=== PATIENT | female | born 1985 | race Caucasian/White ===

== ENCOUNTER 2018-11-17 07:53 | Inpatient (IN) | payer MEDICAID ==
[2018-11-17] MEDS ORDERED: Ondansetron 4 MG/2 ML SDV IVPUSH ONE (08:20)
[2018-11-17] MEDS ORDERED: Sodium Chloride 0.9% 1,000 ML IV SCH (08:30)
[2018-11-17] MEDS ORDERED: Lactated Ringers 1,000 ML IV ONE (08:36)
[2018-11-17] MEDS ORDERED: ePHEDrine 50 MG/ML SDV IVPUSH PRN (08:36)
[2018-11-17] MEDS ORDERED: Sodium Chloride 0.9% 10 ML Syringe FLUSH PRN (08:36)
--- NOTE | 2018-11-17 08:44 | PCM.LDHP ---
<Kimmy Cheung - Last Filed: 11/17/18 08:39> L&D History of Present Illness - General Date of Service: 11/17/18 Admit Problem/Dx: Admission Diagnosis/Problem Admission Diagnosis/Problem Source of Information: Patient History Limitations: Reports: No Limitations - History of Present Illness Introduction:: 11/17/18 33 yo at 38 4/7 weeks presents with contractions at home since last evening , they picked up in intensity around 0200 today. She has also been throwing up intermittently since last evening. She presents with a fever today. Membranes intact. Timing/Duration: Reports: minutes: (2-4) Location, : Reports: Abdomen Severity: Moderate Improves with: Reports: Movement Worsens with: Reports: None Associated Symptoms: Denies: vaginal bleeding, vaginal fluid - Related Data Allergies/Adverse Reactions: Allergies Allergy/AdvReac Type Severity Reaction Status Date / Time No Known Allergies Allergy Verified 08/07/16 18:54 Home Medications: Home Meds Cholecalciferol (Vitamin D3) [Vitamin D3] 1,000 unit PO DAILY 08/07/16 [History] Cyanocobalamin (Vitamin B-12) [Vitamin B-12] 1,000 mcg PO DAILY 08/07/16 [ History] [place]-3 Fatty Acids [[place]-3] 100 mg PO DAILY 08/07/16 [History] Past Medical History [employer] History: Reports: : 2 Para: 1 LMP (Approximate): Musculoskeletal History: Reports: Fracture Other Musculoskeletal History: L wrist Psychiatric History: Reports: Anxiety - Infectious Disease History Infectious Disease History: Reports: Chicken Pox Social & Family History - Caffeine Use Caffeine Use: Reports: Coffee, Tea H&P Review of Systems - Review of Systems: Review Of Systems: See Below General: Reports: Fever, Other (nausea) HEENT: Reports: No Symptoms Pulmonary: Reports: No Symptoms Cardiovascular: Reports: No Symptoms Gastrointestinal: Reports: Vomiting Genitourinary: Reports: No Symptoms Musculoskeletal: Reports: No Symptoms Skin: Reports: No Symptoms Psychiatric: Reports: No Symptoms Neurological: Reports: No Symptoms Hematologic/Lymphatic: Reports: No Symptoms Immunologic: Reports: No Symptoms L&D Exam - Exam Exam: See Below - Vital Signs Vital Signs: Last Vital Signs Temp 38.1 C 11/17/18 08:25 Pulse 108 H 11/17/18 08:00 Resp 16 11/17/18 08:00 BP 114/79 11/17/18 08:00 Pulse Ox 97 11/17/18 08:00 - OB Specific Contraction Frequency (min): 2-4 Contraction Intensity: Moderate Movement: Active Heart Tones: Present Heart Rate (FHR) Variability: Moderate (6-25 bmp) Presentation: Vertex Estimated Weight: 8 lbs - Exam General: Alert, Oriented HEENT: PERRLA, Conjunctiva Clear, EOMI, Hearing Intact, Mucosa Moist & [place], Nares Patent, Normal Nasal Septum, Pupils Equal Neck: Supple, Trachea Midline Lungs: Clear to Auscultation, Normal Respiratory Effort Cardiovascular: Regular Rate, Regular Rhythm GI/Abdominal Exam: Normal Bowel Sounds, Soft, Non-Tender, No Distention Rectal Exam: Normal Exam, Normal Rectal Tone Genitourinary: Normal external exam, Cervical dilitation. No: Vaginal bleeding Back Exam: Normal Inspection, Full Range of Motion Extremities: Normal Inspection, Normal Range of Motion, Non-Tender, No Pedal Edema, Normal Capillary Refill Skin: Warm, Dry, Intact Neurological: Reflexes Equal Bilateral Psychiatric: Alert, Normal Affect, Normal Mood - Problem List (1) Fever SNOMED Code(s): 373760941 ICD Code: R50.9 - FEVER, UNSPECIFIED Status: Acute Current Visit: Yes (2) Labor established SNOMED Code(s): 39057979 ICD Code: [id number] - Status: Acute Current Visit: Yes (3) SNOMED Code(s): 40014944 ICD Code: Z34.90 - ENCNTR FOR SUPRVSN OF NORMAL , UNSP, UNSP TRIMESTER Status: Acute Current Visit: Yes Qualifiers: Weeks of gestation: 38 weeks Qualified Code(s): Z3A.38 - 38 weeks gestation of Problem List Initiated/Reviewed/Updated: Yes Orders Last 24hrs: Active Orders 24 hr Category Date Time Status OB Check [OM.PC] Click To Edit Care 11/17/18 08:00 Ordered DRUG SCREEN, URINE [URCHEM] Urgent Lab 11/17/18 08:28 Ordered INFLUENZA A+B AG SCREEN [RM] Urgent Lab 11/17/18 08:26 Ordered UA W/MICROSCOPIC [URIN] Routine Lab 11/17/18 08:14 Ordered Sodium Chloride 0.9% [Normal Saline] 1,000 ml Med 11/17/18 08:30 Active IV ASDIRECTED Medication Orders Sodium Chloride (Normal Saline) 1,000 mls @ 999 mls/hr IV ASDIRECTED BEST Assessment/Plan Comment:: 11/17/18 Assessment: Fever, vomiting Labor established GBS negative, Rubella immune, B pos blood type, HIV neg, Hep B/C neg, RPR neg Plan: Fluid bolus, IV Zofran, Tylenol Labs ordered Intermittent monitoring Desires nitrous oxide vs epidural Anticipate of a male infant <Vanesa Quintero A - Last Filed: 11/17/18 12:17> L&D History of Present Illness - General Admit Problem/Dx: Patient Status Order with Admit Dx/Problem 11/17/18 08:38 Patient Status [ADT] Routine Admission Diagnosis/Problem Admission Diagnosis/Problem Labor established L&D Exam - Vital Signs Vital Signs: Last Vital Signs Temp 100.1 F 11/17/18 09:07 Pulse 108 H 11/17/18 08:00 Resp 16 11/17/18 08:00 BP 114/79 11/17/18 08:00 Pulse Ox 97 11/17/18 08:00 - Patient Data Lab Results Last 24 hrs: Laboratory Results - last 24 hr 11/17/18 11/17/18 11/17/18 Range/Units 08:14 08:28 08:50 WBC 9.5 (4.5-11.0) K/uL RBC 3.91 (3.30-5.50) M/uL Hgb 11.8 L (12.0-15.0) g/dL Hct 36.6 (36.0-48.0) % MCV 94 (80-98) fL MCH 30 (27-31) pg MCHC 32 (32-36) % Plt Count 236 (150-400) K/uL Urine Color Yellow Urine Appearance Slightly cloudy Urine pH 6.0 (4.5-8.0) Ur Specific [place] 1.015 (1.008-1.030) Urine Protein Trace (NEGATIVE) mg/dL Urine Glucose (UA) Normal (NEGATIVE) mg/dL Urine Ketones 50 H (NEGATIVE) mg/dL Urine Occult Blood Trace (NEGATIVE) Urine Nitrite Negative (NEGATIVE) Urine Bilirubin Negative (NEGATIVE) Urine Urobilinogen Normal (NORMAL) mg/dL Ur Leukocyte Esterase Negative (NEGATIVE) Urine RBC 0-5 (0-5) Urine WBC 0-5 (0-5) Ur Epithelial Cells Moderate Amorphous Sediment Not seen Urine Bacteria Few Urine Mucus Many Urine Opiates Screen Negative (NEGATIVE) Ur Oxycodone Screen Negative (NEGATIVE) Urine Methadone Screen Negative (NEGATIVE) Ur Propoxyphene Screen Negative (NEGATIVE) Ur Barbiturates Screen Negative (NEGATIVE) Ur Tricyclics Screen Negative (NEGATIVE) Ur Phencyclidine Scrn Negative (NEGATIVE) Ur Amphetamine Screen Negative (NEGATIVE) U Methamphetamines Scrn Negative (NEGATIVE) Urine MDMA Screen Negative (NEGATIVE) U Benzodiazepines Scrn Negative (NEGATIVE) U Cocaine Metab Screen Negative (NEGATIVE) U Marijuana (THC) Screen Negative (NEGATIVE) Result Diagrams: 11/17/18 08:50 Giorgio Results Last 24 hrs: Microbiology 11/17/18 08:49 Influenza Type A Antigen Screen - Final Nasopharyngeal Swab NEGATIVE INFLUENZA A VIRUS AG Influenza Type B Antigen Screen - Final NEGATIVE INFLUENZA B VIRUS AG Orders Last 24hrs: Active Orders 24 hr Category Date Time Status Patient Status [ADT] Routine ADT 11/17/18 08:38 Active Antiembolic Devices [RC] .Routine Care 11/17/18 08:41 Active Communication Order [RC] ASDIRECTED Care 11/17/18 08:38 Active Communication Order [RC] ASDIRECTED Care 11/17/18 08:38 Active Communication Order [RC] Per Unit Routine Care 11/17/18 08:38 Active Communication Order [RC] Per Unit Routine Care 11/17/18 08:38 Active Communication Order [RC] Per Unit Routine Care 11/17/18 08:38 Active Heart Tones [RC] PER UNIT ROUTINE Care 11/17/18 08:38 Active Non Stress Test [RC] Click to Edit Care 11/17/18 08:38 Active Insert Urinary Catheter [OM.PC] ASDIRECTED Care 11/17/18 08:45 Ordered Local Anesthetic Infusion Pump [RC] ASDIRECTED Care 11/17/18 08:38 Active May Shower [RC] ASDIRECTED Care 11/17/18 08:36 Active Nitrous Oxide Delivery [RC] ASDIRECTED Care 11/17/18 08:38 Active Notify Provider Vital Signs [RC] PRN Care 11/17/18 08:36 Active Notify Provider [RC] PRN Care 11/17/18 08:38 Active OB Check [OM.PC] Click To Edit Care 11/17/18 08:00 Ordered Oxygen Therapy [RC] ASDIRECTED Care 11/17/18 08:38 Active PCEA Epidural [RC] ASDIRECTED Care 11/17/18 08:38 Active PCEA Epidural [RC] ASDIRECTED Care 11/17/18 08:39 Active Pulse Oximetry [RC] ASDIRECTED Care 11/17/18 08:38 Active Up ad [place] [RC] ASDIRECTED Care 11/17/18 08:36 Active Urinary Catheter Assessment [RC] ASDIRECTED Care 11/17/18 08:39 Active VTE/DVT Education [RC] Click to Edit Care 11/17/18 08:41 Active Verify Patient Consent Obtain [RC] ASDIRECTED Care 11/17/18 08:38 Active Vital Signs [RC] PER UNIT ROUTINE Care 11/17/18 08:38 Active Vital Signs [RC] PER UNIT ROUTINE Care 11/17/18 08:38 Active Clear Liquid Diet [DIET] Diet 11/17/18 Lunch Active Acetaminophen [Tylenol] Med 11/17/18 08:36 Active 650 mg PO Q4H PRN Lactated Ringers [Ringers, Lactated] 1,000 ml Med 11/17/18 10:00 Active IV ASDIRECTED Sodium Chloride 0.9% [Normal Saline] 1,000 ml Med 11/17/18 08:30 Active IV ASDIRECTED Sodium Chloride 0.9% [Saline Flush] Med 11/17/18 08:36 Active 10 ml FLUSH ASDIRECTED PRN ePHEDrine [ePHEDrine sulfate] Med 11/17/18 08:36 Active 5 mg IVPUSH ASDIRECTED PRN DVT/VTE Prophylaxis Reflex [OM.PC] Routine Oth 11/17/18 08:36 Ordered Epidural Catheter Management [OM.PC] Urgent Oth 11/17/18 08:38 Ordered Saline Lock Insert [OM.PC] Routine Oth 11/17/18 08:38 Ordered Resuscitation Status Routine Resus Stat 11/17/18 08:36 Ordered Medication Orders Acetaminophen (Tylenol) 650 mg PO Q4H PRN PRN Reason: Pain (Mild 1-3) and fever Last Admin: 11/17/18 09:07 Dose: 650 mg Ephedrine Sulfate (Ephedrine Sulfate) 5 mg IVPUSH ASDIRECTED PRN PRN Reason: SBP < 100 Sodium Chloride (Normal Saline) 1,000 mls @ 999 mls/hr IV ASDIRECTED BEST Last Admin: 11/17/18 08:30 Dose: 999 mls/hr Lactated Ringer's (Ringers, Lactated) 1,000 mls @ 125 mls/hr IV ASDIRECTED BEST Last Admin: 11/17/18 09:55 Dose: 125 mls/hr Sodium Chloride (Saline Flush) 10 ml FLUSH ASDIRECTED PRN PRN Reason: Keep Vein Open Assessment/Plan Comment:: I personally performed or re-performed the physical examination and medical decision making. I have verified all student documentation or findings, including history, physical exam and/or medical decision making. Vanesa WIGGINS, CNM, CFNP
[2018-11-17] MEDS: Acetaminophen 325 MG Tab PO PRN ×2 (09:07→17:08)
[2018-11-17] MEDS ORDERED: Lactated Ringers 1,000 ML IV SCH (10:00)
--- NOTE | 2018-11-17 12:15 | PCM.PNLD ---
<Kimmy Cheung - Last Filed: 11/17/18 12:12> Labor Progress Note - VS & Meds Vital Signs: Last Vital Signs Temp 37.8 C 11/17/18 09:07 Pulse 108 H 11/17/18 08:00 Resp 16 11/17/18 08:00 BP 114/79 11/17/18 08:00 Pulse Ox 97 11/17/18 08:00 Active Medications: Current Medications Acetaminophen (Tylenol) 650 mg PO Q4H PRN PRN Reason: Pain (Mild 1-3) and fever Last Admin: 11/17/18 09:07 Dose: 650 mg Ephedrine Sulfate (Ephedrine Sulfate) 5 mg IVPUSH ASDIRECTED PRN PRN Reason: SBP < 100 Sodium Chloride (Normal Saline) 1,000 mls @ 999 mls/hr IV ASDIRECTED [facility] Last Admin: 11/17/18 08:30 Dose: 999 mls/hr Lactated Ringer's (Ringers, Lactated) 1,000 mls @ 125 mls/hr IV ASDIRECTED [facility] Last Admin: 11/17/18 09:55 Dose: 125 mls/hr Sodium Chloride (Saline Flush) 10 ml FLUSH ASDIRECTED PRN PRN Reason: Keep Vein Open Discontinued Medications Lactated Ringer's (Ringers, Lactated) 1,000 mls @ 999 mls/hr IV .BOLUS ONE Stop: 11/17/18 09:36 Oxytocin/Sodium Chloride (Pitocin In Ns 20 Units/1,000 Ml) 20 unit in 1,000 mls @ 999 mls/hr IV ONETIME ONE; Protocol Stop: 11/17/18 09:44 Ondansetron HCl (Zofran) 4 mg IVPUSH ONETIME ONE Stop: 11/17/18 08:21 Last Admin: 11/17/18 08:49 Dose: 4 mg - Uterine Contractions Uterine Monitoring Mode: None in Use Contraction Frequency (min): 3-4.5 Contraction Duration (sec): 70-100 Contraction Intensity: Moderate Uterine Resting Tone: Soft - Monitoring Monitor Mode: External Ultrasound Heart Rate (FHR) Baseline: 140 Heart Rate (FHR) Variability: Moderate (6-25 bmp) Accelerations: Present, 15x15 Decelerations: None Strip Review: Category I - Vaginal Exam Dilation (cm): 5.5 Effacement (Percent): 100 Station: -1 Cervical Position: Midposition Sterile Vaginal Exam Performed By: Kimmy Cheung - Labor Progress (Free Text) Labor Progress: 11/17/18 Labor progressing nicely. She had SROM during vaginal exam with clear fluid, head well applied. Cervix 5.5/100/-1. She is going to use nitrous oxide for pain control at this time. Feels much better, afebrile, no nausea or vomiting. <Vanesa Quintero - Last Filed: 11/17/18 12:18> Labor Progress Note - VS & Meds Vital Signs: Last Vital Signs Temp 100.1 F 11/17/18 09:07 Pulse 108 H 11/17/18 08:00 Resp 16 11/17/18 08:00 BP 114/79 11/17/18 08:00 Pulse Ox 97 11/17/18 08:00 Active Medications: Current Medications Acetaminophen (Tylenol) 650 mg PO Q4H PRN PRN Reason: Pain (Mild 1-3) and fever Last Admin: 11/17/18 09:07 Dose: 650 mg Ephedrine Sulfate (Ephedrine Sulfate) 5 mg IVPUSH ASDIRECTED PRN PRN Reason: SBP < 100 Sodium Chloride (Normal Saline) 1,000 mls @ 999 mls/hr IV ASDIRECTED [facility] Last Admin: 11/17/18 08:30 Dose: 999 mls/hr Lactated Ringer's (Ringers, Lactated) 1,000 mls @ 125 mls/hr IV ASDIRECTED [facility] Last Admin: 11/17/18 09:55 Dose: 125 mls/hr Sodium Chloride (Saline Flush) 10 ml FLUSH ASDIRECTED PRN PRN Reason: Keep Vein Open Discontinued Medications Lactated Ringer's (Ringers, Lactated) 1,000 mls @ 999 mls/hr IV .BOLUS ONE Stop: 11/17/18 09:36 Oxytocin/Sodium Chloride (Pitocin In Ns 20 Units/1,000 Ml) 20 unit in 1,000 mls @ 999 mls/hr IV ONETIME ONE; Protocol Stop: 11/17/18 09:44 Ondansetron HCl (Zofran) 4 mg IVPUSH ONETIME ONE Stop: 11/17/18 08:21 Last Admin: 11/17/18 08:49 Dose: 4 mg - Labor Progress (Free Text) Labor Progress: I personally performed or re-performed the physical examination and medical decision making. I have verified all student documentation or findings, including history, physical exam and/or medical decision making. Vanesa WIGGINS, CNM, CFNP
[2018-11-17] MEDS ORDERED: Ropivacaine 100 ML ONE (14:07)
--- NOTE | 2018-11-17 17:00 | PCM.PNLD ---
<Kimmy Cheung - Last Filed: 11/17/18 16:55> Labor Progress Note - VS & Meds Vital Signs: Last Vital Signs Temp 37.1 C 11/17/18 15:15 Pulse 86 11/17/18 15:30 Resp 18 11/17/18 15:30 BP 108/53 L 11/17/18 15:30 Pulse Ox 99 11/17/18 15:30 Active Medications: Current Medications Acetaminophen (Tylenol) 650 mg PO Q4H PRN PRN Reason: Pain (Mild 1-3) and fever Last Admin: 11/17/18 09:07 Dose: 650 mg Ephedrine Sulfate (Ephedrine Sulfate) 5 mg IVPUSH ASDIRECTED PRN PRN Reason: SBP < 100 Sodium Chloride (Normal Saline) 1,000 mls @ 999 mls/hr IV ASDIRECTED BEST Last Admin: 11/17/18 08:30 Dose: 999 mls/hr Lactated Ringer's (Ringers, Lactated) 1,000 mls @ 125 mls/hr IV ASDIRECTED BEST Last Admin: 11/17/18 09:55 Dose: 125 mls/hr Oxytocin/Sodium Chloride (Pitocin In Ns 20 Units/1,000 Ml) 20 units in 1,000 mls @ 6 mls/hr IV TITRATE BEST; Protocol Last Admin: 11/17/18 16:16 Dose: 2 munits/min, 6 mls/hr Sodium Chloride (Saline Flush) 10 ml FLUSH ASDIRECTED PRN PRN Reason: Keep Vein Open Discontinued Medications Lactated Ringer's (Ringers, Lactated) 1,000 mls @ 999 mls/hr IV .BOLUS ONE Stop: 11/17/18 09:36 Last Admin: 11/17/18 11:40 Dose: 999 mls/hr Oxytocin/Sodium Chloride (Pitocin In Ns 20 Units/1,000 Ml) 20 unit in 1,000 mls @ 999 mls/hr IV ONETIME ONE; Protocol Stop: 11/17/18 09:44 Ropivacaine (Naropin 0.2%) Confirm Administered Dose 100 mls @ as directed .ROUTE .STK-MED ONE Stop: 11/17/18 14:08 Ondansetron HCl (Zofran) 4 mg IVPUSH ONETIME ONE Stop: 11/17/18 08:21 Last Admin: 11/17/18 08:49 Dose: 4 mg - Uterine Contractions Uterine Monitoring Mode: External [place] Contraction Frequency (min): 2-5 Contraction Duration (sec): 40-60 Contraction Intensity: Moderate to Strong Uterine Resting Tone: Soft - Monitoring Monitor Mode: External Ultrasound Heart Rate (FHR) Baseline: 140 Heart Rate (FHR) Variability: Moderate (6-25 bmp) Accelerations: Present, 15x15 Decelerations: None Strip Review: Category I - Vaginal Exam Dilation (cm): 9 Effacement (Percent): 100 Station: 0 Cervical Position: Midposition Sterile Vaginal Exam Performed By: Kimmy Cheung Vaginal Exam Comment: joe Oneal - Labor Progress (Free Text) Labor Progress: 11/17/18 SVE 8-9/100/0. AROM completed on second bag of fluid which was clear. Pain is well controlled with epidural. Rotating positions and anticipating . Pitocin was started at 2 mu due to contractions spacing out to every 5 min. <Vanesa Quintero - Last Filed: 11/17/18 18:14> Labor Progress Note - VS & Meds Vital Signs: Last Vital Signs Temp 100.7 F H 11/17/18 17:08 Pulse 86 11/17/18 15:30 Resp 18 11/17/18 15:30 BP 108/53 L 11/17/18 15:30 Pulse Ox 99 11/17/18 15:30 Active Medications: Current Medications Acetaminophen (Tylenol) 650 mg PO Q4H PRN PRN Reason: Pain (Mild 1-3) and fever Last Admin: 11/17/18 17:08 Dose: 650 mg Ephedrine Sulfate (Ephedrine Sulfate) 5 mg IVPUSH ASDIRECTED PRN PRN Reason: SBP < 100 Sodium Chloride (Normal Saline) 1,000 mls @ 999 mls/hr IV ASDIRECTED BEST Last Admin: 11/17/18 08:30 Dose: 999 mls/hr Lactated Ringer's (Ringers, Lactated) 1,000 mls @ 125 mls/hr IV ASDIRECTED BEST Last Admin: 11/17/18 09:55 Dose: 125 mls/hr Oxytocin/Sodium Chloride (Pitocin In Ns 20 Units/1,000 Ml) 20 units in 1,000 mls @ 6 mls/hr IV TITRATE BEST; Protocol Last Admin: 11/17/18 16:16 Dose: 2 munits/min, 6 mls/hr Sodium Chloride (Saline Flush) 10 ml FLUSH ASDIRECTED PRN PRN Reason: Keep Vein Open Discontinued Medications Lactated Ringer's (Ringers, Lactated) 1,000 mls @ 999 mls/hr IV .BOLUS ONE Stop: 11/17/18 09:36 Last Admin: 11/17/18 11:40 Dose: 999 mls/hr Oxytocin/Sodium Chloride (Pitocin In Ns 20 Units/1,000 Ml) 20 unit in 1,000 mls @ 999 mls/hr IV ONETIME ONE; Protocol Stop: 11/17/18 09:44 Ropivacaine (Naropin 0.2%) Confirm Administered Dose 100 mls @ as directed .ROUTE .STK-MED ONE Stop: 11/17/18 14:08 Ondansetron HCl (Zofran) 4 mg IVPUSH ONETIME ONE Stop: 11/17/18 08:21 Last Admin: 11/17/18 08:49 Dose: 4 mg - Labor Progress (Free Text) Labor Progress: I personally performed or re-performed the physical examination and medical decision making. I have verified all student documentation or findings, including history, physical exam and/or medical decision making. Vansea Quintero APRN, MARIBELL, CFNP
[2018-11-17] MEDS ORDERED: Benzocaine 20% Top Spray 56 GM Bottle TOP PRN (18:11)
[2018-11-17] MEDS ORDERED: Ibuprofen 200 MG Tab, 24 Tab Bulk Bottle PO PRN (18:11)
[2018-11-17] MEDS ORDERED: Acetaminophen 325 MG Tab, 50 Tab Bulk Bottle PO PRN (18:11)
[2018-11-17] MEDS ORDERED: Witch Hazel Medicated Pads 100/Jar TOP PRN (18:11)
[2018-11-17] MEDS ORDERED: Lanolin 100% Cream 40 GM Tube TOP PRN (18:11)
--- NOTE | 2018-11-17 18:21 | PCM.DEL ---
<Kimmy Cheung - Last Filed: 11/17/18 18:15> L & D Note - General Info Date of Service: 11/17/18 () Mother's Due Date: 11/27/18 - Delivery Note Labor: Spontaneous Delivery Outcome: Livebirth Delivery Method: Spontaneous Vaginal Delivery-Single Infant Delivery Mode: Spontaneous Presentation: Left Occiput Anterior (LESLEY) Nuchal Cord: None Anesthesia Type: Epidural, Nitrous Oxide Amniotic Fluid Description: Clear Episiotomy Type: None Laceration: 1st Degree Suture type: Vicryl Suture size: 3-0 Placenta: Intact, Spontaneous Cord: 3 Vessels Estimated Blood Loss: 200 Resuscitation Needed: No [place]: Stimulated, Warmed, [place] Used Provider: Vanesa Quintero Score 1 min: 8 Score 5 min: 9 Second Stage Interventions: Reports: Second Nurse Assessed Progress of Descent, Second Nurse Reviewed Contraction Pattern, Second Nurse Reviewed Heart Tones, Pushing Effectively, Pushing, Pulls Own Legs Back Delivery Comments (Free Text/Narrative):: 11/17/18 33 yo G2 now P2 had a at 1753 today after spontaneous labor that started this morning around 0200. She began active labor with SROM at 1209 with clear fluid. She progressed nicely but was augmented with pitocin for contractions that spaced to every 5 minutes. AROM of a second bag was done with clear fluid. Vigorous baby boy was delivered in LESLEY position. Apgars 8, 9. No nuchal cord present. Baby was placed to mothers chest skin to skin. Placenta was delivered spontaneously with a 3 vessel cord and intact. Delayed cord clamping completed. Cord was double clamped and cut. Pitocin IV after placenta given. EBL 200 mL She had a first degree perineal laceration that was repaired. There were no cervical, rectal, or vaginal lacerations. Stages 1st- [id number] 2nd- [id number] 3rd- [id number] - General Info Date of Service: 11/17/18 () Functional Status: Reports: Pain Controlled - Review of Systems General: Reports: Fever (temp 100.7 while pushing) HEENT: Reports: No Symptoms Pulmonary: Reports: No Symptoms Cardiovascular: Reports: No Symptoms Gastrointestinal: Reports: No Symptoms Genitourinary: Reports: No Symptoms Musculoskeletal: Reports: No Symptoms Skin: Reports: No Symptoms Neurological: Reports: No Symptoms Psychiatric: Reports: No Symptoms - Patient Data Vitals - Most Recent: Last Vital Signs Temp 38.2 C H 11/17/18 17:08 Pulse 86 11/17/18 15:30 Resp 18 11/17/18 15:30 BP 108/53 L 11/17/18 15:30 Pulse Ox 99 11/17/18 15:30 Weight - Most Recent: 216 lb 0.002 oz I&O - Last 24 Hours: Intake & Output 11/17/18 11/17/18 11/17/18 06:59 14:59 22:59 Intake Total 1000 Output Total 100 Balance 900 Lab Results Last 24 Hours: Laboratory Results - last 24 hr 11/17/18 11/17/18 11/17/18 Range/Units 08:14 08:28 08:50 WBC 9.5 (4.5-11.0) K/uL RBC 3.91 (3.30-5.50) M/uL Hgb 11.8 L (12.0-15.0) g/dL Hct 36.6 (36.0-48.0) % MCV 94 (80-98) fL MCH 30 (27-31) pg MCHC 32 (32-36) % Plt Count 236 (150-400) K/uL Urine Color Yellow Urine Appearance Slightly cloudy Urine pH 6.0 (4.5-8.0) Ur Specific [place] 1.015 (1.008-1.030) Urine Protein Trace (NEGATIVE) mg/dL Urine Glucose (UA) Normal (NEGATIVE) mg/dL Urine Ketones 50 H (NEGATIVE) mg/dL Urine Occult Blood Trace (NEGATIVE) Urine Nitrite Negative (NEGATIVE) Urine Bilirubin Negative (NEGATIVE) Urine Urobilinogen Normal (NORMAL) mg/dL Ur Leukocyte Esterase Negative (NEGATIVE) Urine RBC 0-5 (0-5) Urine WBC 0-5 (0-5) Ur Epithelial Cells Moderate Amorphous Sediment Not seen Urine Bacteria Few Urine Mucus Many Urine Opiates Screen Negative (NEGATIVE) Ur Oxycodone Screen Negative (NEGATIVE) Urine Methadone Screen Negative (NEGATIVE) Ur Propoxyphene Screen Negative (NEGATIVE) Ur Barbiturates Screen Negative (NEGATIVE) Ur Tricyclics Screen Negative (NEGATIVE) Ur Phencyclidine Scrn Negative (NEGATIVE) Ur Amphetamine Screen Negative (NEGATIVE) U Methamphetamines Scrn Negative (NEGATIVE) Urine MDMA Screen Negative (NEGATIVE) U Benzodiazepines Scrn Negative (NEGATIVE) U Cocaine Metab Screen Negative (NEGATIVE) U Marijuana (THC) Screen Negative (NEGATIVE) Giorgio Results Last 24 Hours: Microbiology 11/17/18 08:49 Influenza Type A Antigen Screen - Final Nasopharyngeal Swab NEGATIVE INFLUENZA A VIRUS AG Influenza Type B Antigen Screen - Final NEGATIVE INFLUENZA B VIRUS AG Med Orders - Current: Current Medications Acetaminophen (Tylenol) 650 mg PO Q4H PRN PRN Reason: Pain (Mild 1-3) and fever Last Admin: 11/17/18 17:08 Dose: 650 mg Ephedrine Sulfate (Ephedrine Sulfate) 5 mg IVPUSH ASDIRECTED PRN PRN Reason: SBP < 100 Sodium Chloride (Normal Saline) 1,000 mls @ 999 mls/hr IV ASDIRECTED BEST Last Admin: 11/17/18 08:30 Dose: 999 mls/hr Lactated Ringer's (Ringers, Lactated) 1,000 mls @ 125 mls/hr IV ASDIRECTED BEST Last Admin: 11/17/18 09:55 Dose: 125 mls/hr Oxytocin/Sodium Chloride (Pitocin In Ns 20 Units/1,000 Ml) 20 units in 1,000 mls @ 6 mls/hr IV TITRATE BEST; Protocol Last Admin: 11/17/18 16:16 Dose: 2 munits/min, 6 mls/hr Sodium Chloride (Saline Flush) 10 ml FLUSH ASDIRECTED PRN PRN Reason: Keep Vein Open Discontinued Medications Lactated Ringer's (Ringers, Lactated) 1,000 mls @ 999 mls/hr IV .BOLUS ONE Stop: 11/17/18 09:36 Last Admin: 11/17/18 11:40 Dose: 999 mls/hr Oxytocin/Sodium Chloride (Pitocin In Ns 20 Units/1,000 Ml) 20 unit in 1,000 mls @ 999 mls/hr IV ONETIME ONE; Protocol Stop: 11/17/18 09:44 Ropivacaine (Naropin 0.2%) Confirm Administered Dose 100 mls @ as directed .ROUTE .STK-MED ONE Stop: 11/17/18 14:08 Ondansetron HCl (Zofran) 4 mg IVPUSH ONETIME ONE Stop: 11/17/18 08:21 Last Admin: 11/17/18 08:49 Dose: 4 mg - Exam General: Alert, Oriented HEENT: Pupils Equal, Pupils Reactive, Mucous Membr. Moist/[place] Neck: Supple Lungs: Clear to Auscultation, Normal Respiratory Effort Cardiovascular: Regular Rate, Regular Rhythm GI/Abdominal Exam: Normal Bowel Sounds, Soft, Non-Tender (Female) Exam: Normal External Exam, Cervical Dilatation, Vaginal Bleeding. No: Vaginal Tears Back Exam: Normal Inspection, Full Range of Motion Extremities: Normal Inspection, Non-Tender, No Pedal Edema Skin: Warm, Dry Neurological: No New Focal Deficit Psy/Mental Status: Alert, Normal Affect, Normal Mood - Problem List & Annotations (1) Fever SNOMED Code(s): 971543095 Code(s): R50.9 - FEVER, UNSPECIFIED Status: Acute Current Visit: Yes (2) Labor established SNOMED Code(s): 21512113 Code(s): ROR4308 - Status: Acute Current Visit: Yes (3) SNOMED Code(s): 97216001 Code(s): Z34.90 - ENCNTR FOR SUPRVSN OF NORMAL , UNSP, UNSP TRIMESTER Status: Acute Current Visit: Yes Qualifiers: Weeks of gestation: 38 weeks Qualified Code(s): Z3A.38 - 38 weeks gestation of (4) Vaginal delivery SNOMED Code(s): 143062231 Code(s): O80 - ENCOUNTER FOR FULL-TERM UNCOMPLICATED DELIVERY Status: Acute Current Visit: Yes (5) Mother currently breast-feeding SNOMED Code(s): 790773368 Code(s): QHH9127 - Status: Acute Current Visit: Yes - Problem List Review Problem List Initiated/Reviewed/Updated: Yes - My Orders Last 24 Hours: My Active Orders 11/17/18 18:10 Patient Status [ADT] Routine Vital Signs [RC] PFP 11/17/18 18:11 Vital Signs [RC] PFP Consult to [place] [CONS] Routine Acetaminophen [Tylenol Bulk Bottle] 325 mg PO Q4H PRN Benzocaine [[id number] 20% [place]] See Dose Instructions TOP Q4H PRN Ibuprofen [Motrin Bulk Bottle] 600 mg PO Q6H PRN Lanolin [Lansinoh HPA] 1 gm TOP ASDIRECTED PRN Witch My [Tucks] 1 pad TOP ASDIRECTED PRN Assess Lochia [WOMSER] Per Unit Routine Assess Uterine Involution [WOMSER] Per Unit Routine 11/17/18 18:12 Ice Therapy [OM.PC] Per Unit Routine Perineal Care [OM.PC] Per Unit Routine Peripheral IV Discontinue [OM.PC] Routine Sitz Bath [OM.PC] Per Unit Routine 11/17/18 Dinner Regular Diet [DIET] 11/18/18 05:11 CBC WITH AUTO DIFF [HEME] AM - Assessment Assessment:: 11/17/18 of male 1st degree laceration with repair FF, bleeding moderate mother - Plan Plan:: I personally performed or re-performed the physical examination and medical decision making. I have verified all student documentation or findings, including history, physical exam and/or medical decision making. Vanesa WIGGINS, CNM, CFNP 11/17/18 Routine cares support Tylenol and Ibuprofen for pain Monitor temperatures CBC in am Anticipate 24-48 hour stay <Vanesa Quintero - Last Filed: 11/17/18 18:29> - Patient Data Vitals - Most Recent: Last Vital Signs Temp 100.7 F H 11/17/18 17:08 Pulse 86 11/17/18 15:30 Resp 18 11/17/18 15:30 BP 108/53 L 11/17/18 15:30 Pulse Ox 99 11/17/18 15:30 I&O - Last 24 Hours: Intake & Output 11/17/18 11/17/18 11/17/18 06:59 14:59 22:59 Intake Total 1000 Output Total 100 Balance 900 Lab Results Last 24 Hours: Laboratory Results - last 24 hr 11/17/18 11/17/18 11/17/18 Range/Units 08:14 08:28 08:50 WBC 9.5 (4.5-11.0) K/uL RBC 3.91 (3.30-5.50) M/uL Hgb 11.8 L (12.0-15.0) g/dL Hct 36.6 (36.0-48.0) % MCV 94 (80-98) fL MCH 30 (27-31) pg MCHC 32 (32-36) % Plt Count 236 (150-400) K/uL Urine Color Yellow Urine Appearance Slightly cloudy Urine pH 6.0 (4.5-8.0) Ur Specific [place] 1.015 (1.008-1.030) Urine Protein Trace (NEGATIVE) mg/dL Urine Glucose (UA) Normal (NEGATIVE) mg/dL Urine Ketones 50 H (NEGATIVE) mg/dL Urine Occult Blood Trace (NEGATIVE) Urine Nitrite Negative (NEGATIVE) Urine Bilirubin Negative (NEGATIVE) Urine Urobilinogen Normal (NORMAL) mg/dL Ur Leukocyte Esterase Negative (NEGATIVE) Urine RBC 0-5 (0-5) Urine WBC 0-5 (0-5) Ur Epithelial Cells Moderate Amorphous Sediment Not seen Urine Bacteria Few Urine Mucus Many Urine Opiates Screen Negative (NEGATIVE) Ur Oxycodone Screen Negative (NEGATIVE) Urine Methadone Screen Negative (NEGATIVE) Ur Propoxyphene Screen Negative (NEGATIVE) Ur Barbiturates Screen Negative (NEGATIVE) Ur Tricyclics Screen Negative (NEGATIVE) Ur Phencyclidine Scrn Negative (NEGATIVE) Ur Amphetamine Screen Negative (NEGATIVE) U Methamphetamines Scrn Negative (NEGATIVE) Urine MDMA Screen Negative (NEGATIVE) U Benzodiazepines Scrn Negative (NEGATIVE) U Cocaine Metab Screen Negative (NEGATIVE) U Marijuana (THC) Screen Negative (NEGATIVE) Giorgio Results Last 24 Hours: Microbiology 11/17/18 08:49 Influenza Type A Antigen Screen - Final Nasopharyngeal Swab NEGATIVE INFLUENZA A VIRUS AG Influenza Type B Antigen Screen - Final NEGATIVE INFLUENZA B VIRUS AG Med Orders - Current: Current Medications Acetaminophen (Tylenol) 650 mg PO Q4H PRN PRN Reason: Pain (Mild 1-3) and fever Last Admin: 11/17/18 17:08 Dose: 650 mg Acetaminophen (Tylenol Bulk Bottle) 325 mg PO Q4H PRN PRN Reason: Pain Benzocaine ([id number] 20% [place]) 0 gm TOP Q4H PRN PRN Reason: Perineal Comfort Measure Emollient Ointment (Lansinoh Hpa) 1 gm TOP ASDIRECTED PRN PRN Reason: Sore Nipples Ephedrine Sulfate (Ephedrine Sulfate) 5 mg IVPUSH ASDIRECTED PRN PRN Reason: SBP < 100 Sodium Chloride (Normal Saline) 1,000 mls @ 999 mls/hr IV ASDIRECTED BEST Last Admin: 11/17/18 08:30 Dose: 999 mls/hr Lactated Ringer's (Ringers, Lactated) 1,000 mls @ 125 mls/hr IV ASDIRECTED BEST Last Admin: 11/17/18 09:55 Dose: 125 mls/hr Oxytocin/Sodium Chloride (Pitocin In Ns 20 Units/1,000 Ml) 20 units in 1,000 mls @ 6 mls/hr IV TITRATE BEST; Protocol Last Admin: 11/17/18 16:16 Dose: 2 munits/min, 6 mls/hr Ibuprofen (Motrin Bulk Bottle) 600 mg PO Q6H PRN PRN Reason: Pain Sodium Chloride (Saline Flush) 10 ml FLUSH ASDIRECTED PRN PRN Reason: Keep Vein Open Witch My (Tucks) 1 pad TOP ASDIRECTED PRN PRN Reason: Hemorrhoids Discontinued Medications Lactated Ringer's (Ringers, Lactated) 1,000 mls @ 999 mls/hr IV .BOLUS ONE Stop: 11/17/18 09:36 Last Admin: 11/17/18 11:40 Dose: 999 mls/hr Oxytocin/Sodium Chloride (Pitocin In Ns 20 Units/1,000 Ml) 20 unit in 1,000 mls @ 999 mls/hr IV ONETIME ONE; Protocol Stop: 11/17/18 09:44 Ropivacaine (Naropin 0.2%) Confirm Administered Dose 100 mls @ as directed .ROUTE .STK-MED ONE Stop: 11/17/18 14:08 Ondansetron HCl (Zofran) 4 mg IVPUSH ONETIME ONE Stop: 11/17/18 08:21 Last Admin: 11/17/18 08:49 Dose: 4 mg - My Orders Last 24 Hours: My Active Orders 11/17/18 08:00 OB Check [OM.PC] Click to Edit 11/17/18 08:30 Sodium Chloride 0.9% [Normal Saline] 1,000 ml IV ASDIRECTED 11/17/18 08:36 May Shower [RC] ASDIRECTED Notify Provider Vital Signs [RC] PRN Up ad [place] [RC] ASDIRECTED Acetaminophen [Tylenol] 650 mg PO Q4H PRN Sodium Chloride 0.9% [Saline Flush] 10 ml FLUSH ASDIRECTED PRN ePHEDrine [ePHEDrine sulfate] 5 mg IVPUSH ASDIRECTED PRN DVT/VTE Prophylaxis Reflex [OM.PC] Routine Resuscitation Status Routine 11/17/18 08:38 Patient Status [ADT] Routine Communication Order [RC] ASDIRECTED Communication Order [RC] ASDIRECTED Communication Order [RC] Per Unit Routine Communication Order [RC] Per Unit Routine Communication Order [RC] Per Unit Routine Heart Tones [RC] PER UNIT ROUTINE Local Anesthetic Infusion Pump [RC] ASDIRECTED Nitrous Oxide Delivery [RC] ASDIRECTED Notify Provider [RC] PRN Oxygen Therapy [RC] ASDIRECTED PCEA Epidural [RC] ASDIRECTED Pulse Oximetry [RC] ASDIRECTED Vital Signs [RC] PER UNIT ROUTINE Epidural Catheter Management [OM.PC] Urgent Saline Lock Insert [OM.PC] Routine 11/17/18 08:39 Urinary Catheter Assessment [RC] ASDIRECTED 11/17/18 08:41 Antiembolic Devices [RC] .Routine VTE/DVT Education [RC] Click to Edit 11/17/18 08:45 Insert Urinary Catheter [OM.PC] ASDIRECTED 11/17/18 10:00 Lactated Ringers [Ringers, Lactated] 1,000 ml IV ASDIRECTED 11/17/18 16:00 Oxytocin/Normal Saline [Pitocin in NS 20 Units/1,000 ML] 20 units in 1,000 ml IV TITRATE 11/17/18 Lunch Clear Liquid Diet [DIET] - Plan Plan:: I personally performed or re-performed the physical examination and medical decision making. I have verified all student documentation or findings, including history, physical exam and/or medical decision making. Vanesa Quintero APRN, CNM, CFNP
--- NOTE | 2018-11-17 20:54 | ANES ---
DATE OF SERVICE: 11/17/2018 INDICATION: This is a 33-year-old female, patient of Clementina Quintero in our Obstetrics Unit. I was consulted to assess the patient for labor epidural. Upon arrival, I found a healthy female. I discussed her history as well as reviewed her lab work and found no contraindication to epidural placement. She is well aware of the risks and benefits of the procedure having received approximately two years ago and denies any concerns for the procedure and okay to proceed and consent was received. DESCRIPTION OF PROCEDURE: I had her seated at the edge of the bed. Betadine prep x3 to lumbar region. Sterile drape was placed, 1% lidocaine skin wheal as well as deep at the L3- L4 region. A 17-gauge Tuohy was placed to loss of resistance. Negative CSF, negative heme, negative paresthesia. I inserted a catheter to 12 cm. Needle was removed. The drape was removed. The catheter was secured in test dose of 3 mL of 1.5% lidocaine and 1:200,000 epinephrine was placed. She had negative sequelae. Again, I completed securing the catheter to her back, placed her in supine position and dosed her with 12 mL of 0.2% ropivacaine and began infusion of that same 12 mL in hour of ropivacaine. She tolerated the procedure quite well. Please refer to nurse's notes for vital signs and neuro status, which were unchanged and within normal limits. I reported off to the nurse what I had completed in the procedure and again she tolerated the procedure quite well. Thank you for the consult. Tacos Baez CRNA /[id number]
--- NOTE | 2018-11-18 09:39 | PCM.PNPP ---
<Kimmy Cheung - Last Filed: 11/18/18 09:31> - General Info Date of Service: 11/18/18 (PP day 1) Functional Status: Reports: Pain Controlled - Review of Systems General: Reports: No Symptoms HEENT: Reports: No Symptoms Pulmonary: Reports: No Symptoms Cardiovascular: Reports: No Symptoms Gastrointestinal: Reports: No Symptoms Genitourinary: Reports: No Symptoms Musculoskeletal: Reports: No Symptoms Skin: Reports: No Symptoms Neurological: Reports: No Symptoms Psychiatric: Reports: No Symptoms - General Info Date of Service: 11/18/18 - Patient Data Vital Signs - Most Recent: Last Vital Signs Temp 35.9 C 11/18/18 04:00 Pulse 78 11/18/18 04:00 Resp 16 11/18/18 04:00 BP 106/64 11/18/18 04:00 Pulse Ox 96 11/18/18 04:00 Weight - Most Recent: 216 lb 0.002 oz I&O - Last 24 Hours: Intake & Output 11/17/18 11/18/18 11/18/18 22:59 06:59 14:59 Intake Total 1999 Balance 1999 Lab Results - Last 24 Hours: Laboratory Results - last 24 hr 11/17/18 11/17/18 11/18/18 Range/Units 08:14 08:28 03:15 WBC 6.8 (4.5-11.0) K/uL RBC 3.56 (3.30-5.50) M/uL Hgb 11.0 L (12.0-15.0) g/dL Hct 33.6 L (36.0-48.0) % MCV 94 (80-98) fL MCH 31 (27-31) pg MCHC 33 (32-36) % Plt Count 220 (150-400) K/uL Neut % (Auto) 80 H (36-66) % Lymph % (Auto) 11 L (24-44) % [place] % (Auto) 9 H (2-6) % Eos % (Auto) 0 L (2-4) % Baso % (Auto) 0 (0-1) % Urine Color Yellow Urine Appearance Slightly cloudy Urine pH 6.0 (4.5-8.0) Ur Specific [place] 1.015 (1.008-1.030) Urine Protein Trace (NEGATIVE) mg/dL Urine Glucose (UA) Normal (NEGATIVE) mg/dL Urine Ketones 50 H (NEGATIVE) mg/dL Urine Occult Blood Trace (NEGATIVE) Urine Nitrite Negative (NEGATIVE) Urine Bilirubin Negative (NEGATIVE) Urine Urobilinogen Normal (NORMAL) mg/dL Ur Leukocyte Esterase Negative (NEGATIVE) Urine RBC 0-5 (0-5) Urine WBC 0-5 (0-5) Ur Epithelial Cells Moderate Amorphous Sediment Not seen Urine Bacteria Few Urine Mucus Many Urine Opiates Screen Negative (NEGATIVE) Ur Oxycodone Screen Negative (NEGATIVE) Urine Methadone Screen Negative (NEGATIVE) Ur Propoxyphene Screen Negative (NEGATIVE) Ur Barbiturates Screen Negative (NEGATIVE) Ur Tricyclics Screen Negative (NEGATIVE) Ur Phencyclidine Scrn Negative (NEGATIVE) Ur Amphetamine Screen Negative (NEGATIVE) U Methamphetamines Scrn Negative (NEGATIVE) Urine MDMA Screen Negative (NEGATIVE) U Benzodiazepines Scrn Negative (NEGATIVE) U Cocaine Metab Screen Negative (NEGATIVE) U Marijuana (THC) Screen Negative (NEGATIVE) Micro Results - Last 24 Hours: Microbiology 11/17/18 08:49 Influenza Type A Antigen Screen - Final Nasopharyngeal Swab NEGATIVE INFLUENZA A VIRUS AG Influenza Type B Antigen Screen - Final NEGATIVE INFLUENZA B VIRUS AG Med Orders - Current: Current Medications Acetaminophen (Tylenol) 650 mg PO Q4H PRN PRN Reason: Pain (Mild 1-3) and fever Last Admin: 11/17/18 17:08 Dose: 650 mg Acetaminophen (Tylenol Bulk Bottle) 325 mg PO Q4H PRN PRN Reason: Pain Last Admin: 11/17/18 19:28 Dose: 325 mg Benzocaine (Jpcw-B-Jwozlkh 20% [place]) 0 gm TOP Q4H PRN PRN Reason: Perineal Comfort Measure Last Admin: 11/17/18 19:29 Dose: 1 spray Emollient Ointment (Lansinoh Hpa) 1 gm TOP ASDIRECTED PRN PRN Reason: Sore Nipples Last Admin: 11/17/18 19:30 Dose: 1 applic Ephedrine Sulfate (Ephedrine Sulfate) 5 mg IVPUSH ASDIRECTED PRN PRN Reason: SBP < 100 Ibuprofen (Motrin Bulk Bottle) 600 mg PO Q6H PRN PRN Reason: Pain Last Admin: 11/17/18 19:31 Dose: 600 mg Sodium Chloride (Saline Flush) 10 ml FLUSH ASDIRECTED PRN PRN Reason: Keep Vein Open Witbunny Pepe (Tucks) 1 pad TOP ASDIRECTED PRN PRN Reason: Hemorrhoids Discontinued Medications Sodium Chloride (Normal Saline) 1,000 mls @ 999 mls/hr IV ASDIRECTED BEST Last Admin: 11/17/18 08:30 Dose: 999 mls/hr Lactated Ringer's (Ringers, Lactated) 1,000 mls @ 999 mls/hr IV .BOLUS ONE Stop: 11/17/18 09:36 Last Admin: 11/17/18 11:40 Dose: 999 mls/hr Oxytocin/Sodium Chloride (Pitocin In Ns 20 Units/1,000 Ml) 20 unit in 1,000 mls @ 999 mls/hr IV ONETIME ONE; Protocol Stop: 11/17/18 09:44 Last Admin: 11/17/18 17:55 Dose: 999 mls/hr, 999 mls/hr Lactated Ringer's (Ringers, Lactated) 1,000 mls @ 125 mls/hr IV ASDIRECTED BEST Last Admin: 11/17/18 09:55 Dose: 125 mls/hr Ropivacaine (Naropin 0.2%) Confirm Administered Dose 100 mls @ as directed .ROUTE .STK-MED ONE Stop: 11/17/18 14:08 Oxytocin/Sodium Chloride (Pitocin In Ns 20 Units/1,000 Ml) 20 units in 1,000 mls @ 6 mls/hr IV TITRATE BEST; Protocol Last Admin: 11/17/18 16:16 Dose: 2 munits/min, 6 mls/hr Ondansetron HCl (Zofran) 4 mg IVPUSH ONETIME ONE Stop: 11/17/18 08:21 Last Admin: 11/17/18 08:49 Dose: 4 mg - Interaction Infant Disposition, : in Room with Family Interaction: Holding Feeding: Breastfed ; Nursed Well Support Person: - Recovery Exam Fundal Tone: Firm Fundal Level: At Umbilicus Fundal Placement: Midline Lochia Amount: Moderate Lochia Color: Rubra/Red Perineum Description: Intact, Minimal Bruising/Swelling Episiotomy/Laceration: Approximated Bladder Status: Voiding - Exam General: Alert, Oriented HEENT: Pupils Equal Neck: Supple Lungs: Clear to Auscultation, Normal Respiratory Effort Cardiovascular: Regular Rate, Regular Rhythm GI/Abdominal Exam: Normal Bowel Sounds, Soft, Non-Tender, No Organomegaly, No Distention, No Abnormal Bruit, No Mass, Pelvis Stable Extremities: Normal Inspection, Normal Range of Motion, Non-Tender, No Pedal Edema, Normal Capillary Refill Skin: Warm, Dry, Intact Wound/Incisions: Healing Well Neurological: No New Focal Deficit Psy/Mental Status: Alert, Normal Affect, Normal Mood - Problem List & Annotations (1) Fever SNOMED Code(s): 256945233 Code(s): R50.9 - FEVER, UNSPECIFIED Status: Acute Current Visit: Yes (2) Labor established SNOMED Code(s): 36639941 Code(s): AVS0726 - Status: Acute Current Visit: Yes (3) SNOMED Code(s): 72490715 Code(s): Z34.90 - ENCNTR FOR SUPRVSN OF NORMAL , UNSP, UNSP TRIMESTER Status: Acute Current Visit: Yes Qualifiers: Weeks of gestation: 38 weeks Qualified Code(s): Z3A.38 - 38 weeks gestation of (4) Vaginal delivery SNOMED Code(s): 795735265 Code(s): O80 - ENCOUNTER FOR FULL-TERM UNCOMPLICATED DELIVERY Status: Acute Current Visit: Yes (5) Mother currently breast-feeding SNOMED Code(s): 844773202 Code(s): XKI5692 - Status: Acute Current Visit: Yes - Problem List Review Problem List Initiated/Reviewed/Updated: Yes - My Orders Last 24 Hours: My Active Orders 11/17/18 18:10 Patient Status [ADT] Routine 11/17/18 18:11 Consult to Housekeeping Supervisor [CONS] Routine Acetaminophen [Tylenol Bulk Bottle] 325 mg PO Q4H PRN Benzocaine [Vlme-N-Qsupexq 20% [place]] See Dose Instructions TOP Q4H PRN Ibuprofen [Motrin Bulk Bottle] 600 mg PO Q6H PRN Lanolin [Lansinoh HPA] 1 gm TOP ASDIRECTED PRN Witch My [Tucks] 1 pad TOP ASDIRECTED PRN Assess Lochia [WOMSER] Per Unit Routine Assess Uterine Involution [WOMSER] Per Unit Routine 11/17/18 18:12 Ice Therapy [OM.PC] Per Unit Routine Perineal Care [OM.PC] Per Unit Routine Peripheral IV Discontinue [OM.PC] Routine Sitz Bath [OM.PC] Per Unit Routine 11/17/18 Dinner Regular Diet [DIET] - Assessment Assessment:: 11/17/18 of male 1st degree laceration with repair FF, bleeding moderate mother 11/18/18 PP day 1 FF, bleeding light to moderate with no clots Afebrile through out the night Perineum well approximated Pain controlled - Plan Plan:: I personally performed or re-performed the physical examination and medical decision making. I have verified all student documentation or findings, including history, physical exam and/or medical decision making. Vanesa Quintero APRN, CNM, [place] 11/18/18 Routine cares Rx for breast pump given support Anticipate discharge tomorrow am <Vanesa Quintero - Last Filed: 11/18/18 09:57> - Patient Data Vital Signs - Most Recent: Last Vital Signs Temp 96.7 F 11/18/18 04:00 Pulse 78 11/18/18 04:00 Resp 16 11/18/18 04:00 BP 106/64 11/18/18 04:00 Pulse Ox 96 11/18/18 04:00 I&O - Last 24 Hours: Intake & Output 11/17/18 11/18/18 11/18/18 22:59 06:59 14:59 Intake Total 1999 Balance 1999 Lab Results - Last 24 Hours: Laboratory Results - last 24 hr 11/18/18 Range/Units 03:15 WBC 6.8 (4.5-11.0) K/uL RBC 3.56 (3.30-5.50) M/uL Hgb 11.0 L (12.0-15.0) g/dL Hct 33.6 L (36.0-48.0) % MCV 94 (80-98) fL MCH 31 (27-31) pg MCHC 33 (32-36) % Plt Count 220 (150-400) K/uL Neut % (Auto) 80 H (36-66) % Lymph % (Auto) 11 L (24-44) % [place] % (Auto) 9 H (2-6) % Eos % (Auto) 0 L (2-4) % Baso % (Auto) 0 (0-1) % Micro Results - Last 24 Hours: Microbiology 11/17/18 08:49 Influenza Type A Antigen Screen - Final Nasopharyngeal Swab NEGATIVE INFLUENZA A VIRUS AG Influenza Type B Antigen Screen - Final NEGATIVE INFLUENZA B VIRUS AG Med Orders - Current: Current Medications Acetaminophen (Tylenol) 650 mg PO Q4H PRN PRN Reason: Pain (Mild 1-3) and fever Last Admin: 11/17/18 17:08 Dose: 650 mg Acetaminophen (Tylenol Bulk Bottle) 325 mg PO Q4H PRN PRN Reason: Pain Last Admin: 11/17/18 19:28 Dose: 325 mg Benzocaine (Waru-B-Deujxky 20% [place]) 0 gm TOP Q4H PRN PRN Reason: Perineal Comfort Measure Last Admin: 11/17/18 19:29 Dose: 1 spray Emollient Ointment (Lansinoh Hpa) 1 gm TOP ASDIRECTED PRN PRN Reason: Sore Nipples Last Admin: 11/17/18 19:30 Dose: 1 applic Ephedrine Sulfate (Ephedrine Sulfate) 5 mg IVPUSH ASDIRECTED PRN PRN Reason: SBP < 100 Ibuprofen (Motrin Bulk Bottle) 600 mg PO Q6H PRN PRN Reason: Pain Last Admin: 11/17/18 19:31 Dose: 600 mg Sodium Chloride (Saline Flush) 10 ml FLUSH ASDIRECTED PRN PRN Reason: Keep Vein Open Witbunny My (Tucks) 1 pad TOP ASDIRECTED PRN PRN Reason: Hemorrhoids Discontinued Medications Sodium Chloride (Normal Saline) 1,000 mls @ 999 mls/hr IV ASDIRECTED BEST Last Admin: 11/17/18 08:30 Dose: 999 mls/hr Lactated Ringer's (Ringers, Lactated) 1,000 mls @ 999 mls/hr IV .BOLUS ONE Stop: 11/17/18 09:36 Last Admin: 11/17/18 11:40 Dose: 999 mls/hr Oxytocin/Sodium Chloride (Pitocin In Ns 20 Units/1,000 Ml) 20 unit in 1,000 mls @ 999 mls/hr IV ONETIME ONE; Protocol Stop: 11/17/18 09:44 Last Admin: 11/17/18 17:55 Dose: 999 mls/hr, 999 mls/hr Lactated Ringer's (Ringers, Lactated) 1,000 mls @ 125 mls/hr IV ASDIRECTED BEST Last Admin: 11/17/18 09:55 Dose: 125 mls/hr Ropivacaine (Naropin 0.2%) Confirm Administered Dose 100 mls @ as directed .ROUTE .STK-MED ONE Stop: 11/17/18 14:08 Oxytocin/Sodium Chloride (Pitocin In Ns 20 Units/1,000 Ml) 20 units in 1,000 mls @ 6 mls/hr IV TITRATE BEST; Protocol Last Admin: 11/17/18 16:16 Dose: 2 munits/min, 6 mls/hr Ondansetron HCl (Zofran) 4 mg IVPUSH ONETIME ONE Stop: 11/17/18 08:21 Last Admin: 11/17/18 08:49 Dose: 4 mg - My Orders Last 24 Hours: My Active Orders 11/17/18 Lunch Clear Liquid Diet [DIET] - Plan Plan:: I personally performed or re-performed the physical examination and medical decision making. I have verified all student documentation or findings, including history, physical exam and/or medical decision making. Vanesa Quintero APRN, CNRl, CFNP
[2018-11-18] MEDS ORDERED: Docusate Sodium 100 MG Cap PO PRN (15:56)
--- NOTE | 2018-11-19 09:57 | PCM.PNPP ---
<Kimmy Cheung - Last Filed: 11/19/18 09:54> - General Info Date of Service: 11/19/18 (Discharge, PP day 2) Functional Status: Reports: Pain Controlled - Review of Systems General: Reports: No Symptoms HEENT: Reports: No Symptoms Pulmonary: Reports: No Symptoms Cardiovascular: Reports: No Symptoms Gastrointestinal: Reports: No Symptoms Genitourinary: Reports: No Symptoms Musculoskeletal: Reports: No Symptoms Skin: Reports: No Symptoms Neurological: Reports: No Symptoms Psychiatric: Reports: No Symptoms - General Info Date of Service: 11/19/18 - Patient Data Vital Signs - Most Recent: Last Vital Signs Temp 35.7 C 11/19/18 06:52 Pulse 55 L 11/19/18 06:52 Resp 18 11/19/18 06:52 BP 99/53 L 11/19/18 06:52 Pulse Ox 96 11/19/18 06:52 Weight - Most Recent: 216 lb 0.002 oz I&O - Last 24 Hours: Intake & Output 11/18/18 11/19/18 11/19/18 22:59 06:59 14:59 Intake Total 960 1000 240 Balance 960 1000 240 Med Orders - Current: Current Medications Acetaminophen (Tylenol) 650 mg PO Q4H PRN PRN Reason: Pain (Mild 1-3) and fever Last Admin: 11/17/18 17:08 Dose: 650 mg Acetaminophen (Tylenol Bulk Bottle) 325 mg PO Q4H PRN PRN Reason: Pain Last Admin: 11/17/18 19:28 Dose: 325 mg Benzocaine (Hfti-G-Giuulls 20% [place]) 0 gm TOP Q4H PRN PRN Reason: Perineal Comfort Measure Last Admin: 11/17/18 19:29 Dose: 1 spray Docusate Sodium (Colace) 100 mg PO BID PRN PRN Reason: Constipation Last Admin: 11/18/18 18:36 Dose: 100 mg Emollient Ointment (Lansinoh Hpa) 1 gm TOP ASDIRECTED PRN PRN Reason: Sore Nipples Last Admin: 11/17/18 19:30 Dose: 1 applic Ephedrine Sulfate (Ephedrine Sulfate) 5 mg IVPUSH ASDIRECTED PRN PRN Reason: SBP < 100 Ibuprofen (Motrin Bulk Bottle) 600 mg PO Q6H PRN PRN Reason: Pain Last Admin: 11/17/18 19:31 Dose: 600 mg Sodium Chloride (Saline Flush) 10 ml FLUSH ASDIRECTED PRN PRN Reason: Keep Vein Open [place] Pepe (Tucks) 1 pad TOP ASDIRECTED PRN PRN Reason: Hemorrhoids Discontinued Medications Sodium Chloride (Normal Saline) 1,000 mls @ 999 mls/hr IV ASDIRECTED BEST Last Admin: 11/17/18 08:30 Dose: 999 mls/hr Lactated Ringer's (Ringers, Lactated) 1,000 mls @ 999 mls/hr IV .BOLUS ONE Stop: 11/17/18 09:36 Last Admin: 11/17/18 11:40 Dose: 999 mls/hr Oxytocin/Sodium Chloride (Pitocin In Ns 20 Units/1,000 Ml) 20 unit in 1,000 mls @ 999 mls/hr IV ONETIME ONE; Protocol Stop: 11/17/18 09:44 Last Admin: 11/17/18 17:55 Dose: 999 mls/hr, 999 mls/hr Lactated Ringer's (Ringers, Lactated) 1,000 mls @ 125 mls/hr IV ASDIRECTED BEST Last Admin: 11/17/18 09:55 Dose: 125 mls/hr Ropivacaine (Naropin 0.2%) Confirm Administered Dose 100 mls @ as directed .ROUTE .STK-MED ONE Stop: 11/17/18 14:08 Oxytocin/Sodium Chloride (Pitocin In Ns 20 Units/1,000 Ml) 20 units in 1,000 mls @ 6 mls/hr IV TITRATE BEST; Protocol Last Admin: 11/17/18 16:16 Dose: 2 munits/min, 6 mls/hr Ondansetron HCl (Zofran) 4 mg IVPUSH ONETIME ONE Stop: 11/17/18 08:21 Last Admin: 11/17/18 08:49 Dose: 4 mg - Interaction Disposition, : in Room with Family Interaction: Holding Feeding: Breastfed Infant; Nursed Well Support Person: - Recovery Exam Fundal Tone: Firm Fundal Level: 1 Fingerbreadths Below Umbilicus Fundal Placement: Midline Lochia Amount: Small Lochia Color: Rubra/Red Perineum Description: Intact, Minimal Bruising/Swelling Episiotomy/Laceration: Approximated Bladder Status: Voiding Urinary Elimination: Voided - Exam General: Alert, Oriented HEENT: Pupils Equal, Pupils Reactive, Mucous Membr. Moist/[place] Neck: Supple Lungs: Clear to Auscultation, Normal Respiratory Effort Cardiovascular: Regular Rate, Regular Rhythm GI/Abdominal Exam: Normal Bowel Sounds, Soft, Non-Tender, No Distention Extremities: Normal Inspection, Normal Range of Motion, Non-Tender, No Pedal Edema, Normal Capillary Refill Skin: Warm, Dry, Intact Wound/Incisions: Healing Well Neurological: No New Focal Deficit Psy/Mental Status: Alert, Normal Affect, Normal Mood - Problem List & Annotations (1) Fever SNOMED Code(s): 251225816 Code(s): R50.9 - FEVER, UNSPECIFIED Status: Acute Current Visit: Yes (2) Labor established SNOMED Code(s): 73354672 Code(s): DED8236 - Status: Acute Current Visit: Yes (3) SNOMED Code(s): 10317298 Code(s): Z34.90 - ENCNTR FOR SUPRVSN OF NORMAL , UNSP, UNSP TRIMESTER Status: Acute Current Visit: Yes Qualifiers: Weeks of gestation: 38 weeks Qualified Code(s): Z3A.38 - 38 weeks gestation of (4) Vaginal delivery SNOMED Code(s): 085107907 Code(s): O80 - ENCOUNTER FOR FULL-TERM UNCOMPLICATED DELIVERY Status: Acute Current Visit: Yes (5) Mother currently breast-feeding SNOMED Code(s): 642586311 Code(s): YOJ1226 - Status: Acute Current Visit: Yes - Problem List Review Problem List Initiated/Reviewed/Updated: Yes - Assessment Assessment:: 11/17/18 of male 1st degree laceration with repair FF, bleeding moderate mother 11/18/18 PP day 1 FF, bleeding light to moderate with no clots Afebrile through out the night Perineum well approximated Pain controlled 11/19/18 PP day 2, expresses readiness for discharge home FF, bleeding light Afebrile well established Hgb 11.8 to 11.0 Pain controlled, voiding well, perineum well approximated - Plan Plan:: I personally performed or re-performed the physical examination and medical decision making. I have verified all student documentation or findings, including history, physical exam and/or medical decision making. Vanesa Quintero APRN, CNM, [place] 11/19/18 Discharge home today 6 week check <Vanesa Quintero A - Last Filed: 11/19/18 10:02> - Patient Data Vital Signs - Most Recent: Last Vital Signs Temp 96.2 F 11/19/18 06:52 Pulse 55 L 11/19/18 06:52 Resp 18 11/19/18 06:52 BP 99/53 L 11/19/18 06:52 Pulse Ox 96 11/19/18 06:52 I&O - Last 24 Hours: Intake & Output 11/18/18 11/19/18 11/19/18 22:59 06:59 14:59 Intake Total 960 1000 240 Balance 960 1000 240 Med Orders - Current: Current Medications Acetaminophen (Tylenol) 650 mg PO Q4H PRN PRN Reason: Pain (Mild 1-3) and fever Last Admin: 11/17/18 17:08 Dose: 650 mg Acetaminophen (Tylenol Bulk Bottle) 325 mg PO Q4H PRN PRN Reason: Pain Last Admin: 11/17/18 19:28 Dose: 325 mg Benzocaine (Yzqn-Q-Vkbzzyf 20% [place]) 0 gm TOP Q4H PRN PRN Reason: Perineal Comfort Measure Last Admin: 11/17/18 19:29 Dose: 1 spray Docusate Sodium (Colace) 100 mg PO BID PRN PRN Reason: Constipation Last Admin: 11/18/18 18:36 Dose: 100 mg Emollient Ointment (Lansinoh Hpa) 1 gm TOP ASDIRECTED PRN PRN Reason: Sore Nipples Last Admin: 11/17/18 19:30 Dose: 1 applic Ephedrine Sulfate (Ephedrine Sulfate) 5 mg IVPUSH ASDIRECTED PRN PRN Reason: SBP < 100 Ibuprofen (Motrin Bulk Bottle) 600 mg PO Q6H PRN PRN Reason: Pain Last Admin: 11/17/18 19:31 Dose: 600 mg Sodium Chloride (Saline Flush) 10 ml FLUSH ASDIRECTED PRN PRN Reason: Keep Vein Open Witch My (Tucks) 1 pad TOP ASDIRECTED PRN PRN Reason: Hemorrhoids Discontinued Medications Sodium Chloride (Normal Saline) 1,000 mls @ 999 mls/hr IV ASDIRECTED BEST Last Admin: 11/17/18 08:30 Dose: 999 mls/hr Lactated Ringer's (Ringers, Lactated) 1,000 mls @ 999 mls/hr IV .BOLUS ONE Stop: 11/17/18 09:36 Last Admin: 11/17/18 11:40 Dose: 999 mls/hr Oxytocin/Sodium Chloride (Pitocin In Ns 20 Units/1,000 Ml) 20 unit in 1,000 mls @ 999 mls/hr IV ONETIME ONE; Protocol Stop: 11/17/18 09:44 Last Admin: 11/17/18 17:55 Dose: 999 mls/hr, 999 mls/hr Lactated Ringer's (Ringers, Lactated) 1,000 mls @ 125 mls/hr IV ASDIRECTED BEST Last Admin: 11/17/18 09:55 Dose: 125 mls/hr Ropivacaine (Naropin 0.2%) Confirm Administered Dose 100 mls @ as directed .ROUTE .STK-MED ONE Stop: 11/17/18 14:08 Oxytocin/Sodium Chloride (Pitocin In Ns 20 Units/1,000 Ml) 20 units in 1,000 mls @ 6 mls/hr IV TITRATE BEST; Protocol Last Admin: 11/17/18 16:16 Dose: 2 munits/min, 6 mls/hr Ondansetron HCl (Zofran) 4 mg IVPUSH ONETIME ONE Stop: 11/17/18 08:21 Last Admin: 11/17/18 08:49 Dose: 4 mg - My Orders Last 24 Hours: My Active Orders 11/18/18 15:56 Docusate Sodium [Colace] 100 mg PO BID PRN - Plan Plan:: I personally performed or re-performed the physical examination and medical decision making. I have verified all student documentation or findings, including history, physical exam and/or medical decision making. Vanesa Quintero APRN, MAR[place]ELL, CFNP
[2018-11-19 10:54] VITALS: BP 125/71
== END 2018-11-19 12:03 | disposition home or self-care (01) | DRG 806 ==
LOC: JP.OBCHECK 07:53 → JP.OB 08:32 → OBSVTOIN 17:53 → JP.MS 22:45
PROVIDERS: ADMIT Nurse Practitioner Family; ATTEND Nurse Practitioner Family
PROC: 10E0XZZ Delivery of Products of Conception, External Approach (ICD-10-PCS; principal; 2018-11-17)
PROC: 10907ZC Drainage of Amniotic Fluid, Therapeutic from Products of Conception, Via Natural or Artificial Opening (ICD-10-PCS; 2018-11-17)
PROC: 0HQ9XZZ Repair Perineum Skin, External Approach (ICD-10-PCS; 2018-11-17)
PROC: 00HU33Z Insertion of Infusion Device into Spinal Canal, Percutaneous Approach (ICD-10-PCS; 2018-11-17)
DX: O70.0 First degree perineal laceration during delivery (principal); O75.2 Pyrexia during labor, not elsewhere classified; Z37.0 Single live birth; Z3A.38 38 weeks gestation of pregnancy
CPT/HCPCS: 36415; 51702; 59409; 80305-QW; 81001; 85025; 85027; 87804; 87804-59; 99211; A9270-GY; J2405; J2590; J2795; J7030; J7120